=== PATIENT | male | born 1960 | race African-American/Black ===

== ENCOUNTER 2024-05-13 10:00 | Outpatient (REF) | payer MEDICARE, MEDICAID, SELFPAY ==
[2024-05-13 10:42] LABS: MANUAL DIFF FLAG NO
[2024-05-13 10:46] LABS: Basophils Percent Auto 0.4 % (0-2); Eosinophils Absolute Auto 0.1 X10*3/uL (0.0-0.4); Eosinophils Percent Auto 1.1 % (0-4); Hematocrit 46.4 % (42.0-52.0); Hemoglobin 15.2 g/dl (14.0-18.0); Imm Gran Abs Auto 0.02 X10*3/uL (0.00-0.03); Imm Gran Pct Auto 0.3 % (0.0-0.4); Lymphocytes Absolute Auto 2.1 X10*3/uL (1.2-4.9); Lymphocytes Percent Auto 28.8 % (20-40); Mean Corpuscular HGB Conc 32.8 g/dl (31.0-36.0); Mean Corpuscular Hemoglobin 28.1 pg (27.0-33.0); Mean Corpuscular Volume 85.8 fL (80.0-98.0); Mean Platelet Volume 10.7 fL (9.4-12.4); Monocytes Absolute Auto 0.6 X10*3/uL (0.1-1.2); Monocytes Percent Auto 8.8 % (2-11); Neutrophils Absolute Auto 4.4 x10*3/uL (2.0-8.3); Neutrophils Percent Auto 60.6 % (45-73); Platelet Count 250 X10*3/uL (160-400); Red Blood Count 5.41 X10*6/uL (4.60-5.80); Red Cell Distribution Width 13.8 % (11.0-16.0); White Blood Count 7.3 X10*3/uL (4.8-10.8)
[2024-05-13 10:56] LABS: Estimated Average Glucose 329 mg/dL; Hemoglobin A1C 449.5707 umol/L; Hemoglobin A1c % 13.1 % (<6.0); Total Hemoglobin (HGBA1C) 3773.1097 umol/L
[2024-05-13 11:17] LABS: Alanine Aminotransferase 14 U/L (0-40); Alkaline Phosphatase 91 U/L (39-117); Anion Gap 10 (12-20); Aspartate Amino Transferase 16 U/L (5-37); Bilirubin Total 0.3 mg/dL (0.0-1.0); Blood Urea Nitrogen 14 mg/dL (9-16); Calcium 9.7 mg/dL (8.4-10.2); Carbon Dioxide 33 mmol/L (22-29); Chloride 101 mmol/L (96-108); Cholesterol 145 mg/dL (<200); Estimated Glomerular Filt Rate > 60; Glucose Random 265 mg/dL (60-115); HDL Cholesterol 46 mg/dL (>40); LDL Cholesterol Calculated 71 mg/dL (<100); Potassium 4.4 mmol/L (3.3-5.1); Sodium 140 mmol/L (135-145); Total Protein 7.8 g/dL (6.5-8.0); Triglycerides 141 mg/dL (<150)
[2024-05-13 11:21] LABS: Thyroid Stimulating Hormone 1.44 uIU/mL (0.32-4.0)
[2024-05-13 11:22] LABS: Creatinine Urine 97.28 mg/dL; Microalbum/Creatinine Ratio Ur 142.8 ug/mg cr (<30)
[2024-05-13 11:25] LABS: Prostate Specific Antigen Scr 0.64 ng/mL (<0.05-4.0)
--- OUTSIDE RECORDS SUMMARY | 2024-05-13 11:29 | XMS_ITS ---
Author Organization [facility] [place] Address [address] [place] [address] Care Team Providers Care Pals Specialist Name Role Phone Trishamariah Josselyn Primary Care Provider Unavailab Prema Langley Unavailable [phone] REASON FOR VISIT Updating Health Insurance Encounters Encounter Location Date Provider Diagnosis [address] [address] 05/07/2024 Prema Duong Plan Of Treatment Next Appt Details Provider Name:Prema hoyos, 08/08/2024 09:30:00 AM, [address] [place] [address], [phone], Progress Notes * Troy DOMINGUEZDOB: (64 yo M)Acc No.[id number]:05/07/2024 Patient:?Troy DOMINGUEZ :1960???Age:64 Y???Sex:Male Address:[address] [place] [address] Denis [place], [address] * true * Date:? Generated for Printi ng/Fabayg/eTransmitting on:?05/13/2024 11:28 AM EST
--- OUTSIDE RECORDS SUMMARY | 2024-05-13 11:29 | XMS_ITS ---
Author Organization [facility] [place] Address [address] [place] [address] Care Team Providers Care Synthetic Resin Operator Name Role Phone Josselyn Peres Primary Care Provider Unavailab Prema Langley [phone] Farris Encounters Encounter Location Date Provider Diagnosis [address] [address] 12/22/2022 Prema Duong Plan Of Treatment Next Appt Details Provider Name:Prema hoyos, 08/08/2024 09:30:00 AM, [address] [place] [address], [phone], Progress Notes * Troy DOMINGUEZ MDOB: [birth year] (64 yo M)Acc No.[id number]:12/22/2022 Progress Note Patient:?Troy DOMINGUEZ Provider:?Prema Duong DPM :1960???Age:62 Y???Sex:Male Mp e:12/22/2022 Address:[address] [place], [place] [id number] Pcp:Josselyn Peres Subjective: * Chief Complaints: * ???1. Dr Farris. * Medical History:? Objective: * Vitals:? Assessment: Plan: * Treatment: * Images: * The named appointment provid er may or may not be the originator of this progress note, and it is not deemed complete until electronically signed by the appointment provider. Sign off status: Pending * Provider:?Prema Duong DPM Date:? Generated for Orin olguin/Maxine/Delores on:?05/13/2024 11:28 AM EST
--- OUTSIDE RECORDS SUMMARY | 2024-05-13 11:29 | XMS_ITS | Patient Health Record ---
Author Organization [facility] Address [address] [place] [address] Care Team Providers Care Ring Conductor Name Role Phone Josselyn Peres Primary Care Provider Unavailab Prema Langley Unavailable [phone] Allergies No Known Allergies Results Component Value Reference Range Notes HEMOGLOBIN A1C (GLYCOHEMOGLO BIN) Reviewed date:05/09/2024 12:51:39 PM Interpretation: Performing Lab: Notes/Report: HEMOGLOBIN A1C % (HH) 9.2 Reason For Referral No Information Medications Medication SIG (Take, Route, Frequency, Duration) Notes Start Date End Date Status Ammonium Lactate 12 % 1 application Exte rnally to affected areas of dry skin to feet except for between the toes Twice a day for 30 days Active Extra Depth Orthopedic Shoes (1 Pair) with Customized Heat Molded Multidensity Innersoles (3 Pair) as directed Dx: NIDDM/Polyneuropathy (E11.42), Hammertoe Foot Deformity (M20.41,M20.42), Preulcerative Skin Lesion(s) (L85.1 05/09/2024 Active Carvedilol 12.5 MG 1 tablet with food Orally Twice a day for 30 day(s) Active Lantus Active metFORMIN HCl 1000 MG 1 tablet with a me al Orally Once a day for 30 day(s) Active NovoLOG Not-Taking Lcnttdnghb-atXISYZksa-KY TZ 40-10-25 MG 1 tablet Orally Once a day for 30 day(s) Active Pravastatin Sodium 10 MG 1 tablet Orally Once a day for 30 day(s) Active Xarelto 20 MG 1 tablet with food Orally Once a day for 30 day(s) Active Extra Depth Orthopedic Shoes (1 Pair) with Customized Heat Molded Multidensity Innersoles (3 Pair) as directed Dx: NIDDM/Polyneuropathy (E11.42), Hammertoe Foot Deformity (M20.41,M20.42), Preulcerative Skin Lesion(s) (L85.1 07/18/2022 Active Cephalexin 500 MG 1 capsule Orally treva ry 12 hrs for 7 days Not-Taking Cephalexin 500 MG 1 tablet Orally Twic e a day for 10 day(s) Not-Taking Lyumjev Active Immunizations Vaccine Route Administration Date Status Comme nts COVID-19 Pfizer BioNTech Vaccine Unknown 05/31/2020 Administered Second Dose: 06/14/2020 Influenza Unknown 01/08/2020 Administered Influenza Unknown 12/29/2021 Administered Social History Tobacco Use: Social History Observation Description Date Details (start date - stop date) Never Smoker NA - NA Tobacco Use/Smoking Question Answer Notes Are you a: nonsmoker Additional Findings: Tobacco Non-User Current no n-smoker Alcohol Screen Question Answer Notes Did you have a drink containing alcohol in the p ast year? No Points 0 Interpretation Negative Tobacco use other than smoking: Question Answer Notes Are you an other tobacco user? No Problems Problem Type SNOMED Code ICD Code Onset Dates Problem Status W/U Status Risk Notes Problem Acquired hammer toe of right foot (3333714978610118 ) Other hammer toe(s) (acquired), right foot (M20.41) Active confirmed Problem Type 2 diabetes mellitus with peripheral angiopathy (762198243) Type 2 diabetes mellitus with diabetic peripheral angiopathy without gangrene (E11.51) Active confirmed Problem Acquired hammer toe of left foot (9312057642448381 ) Other hammer toe(s) (acquired), left foot (M20.42) Active confirmed Problem Polyneuropathy due to type 2 diabetes mellitus (034367453) Type 2 diabetes mellitus with diabetic polyneuropathy (E11.42) Active confirmed Problem Type 2 diabetes mellitus with peripheral angiopathy (588577104) Type 2 diabetes mellitus with diabetic peripheral angiopathy without gangrene (E11.51) Active confirmed Problem Peripheral circulatory disorder associated with type 1 diabetes mellitus (486016849) Type 1 diabetes mellitus with diabetic peripheral angiopathy without gangrene (E10.51) Active confirmed Problem 10266246 Type 2 diabetes mellitus with polyneuropathy (E11.42) Active confirmed Problem Atherosclerosis of [place] artery of both lower extremities, with unspecified presence of clinical manifestation (I70.203) Active confirmed Problem Atherosclerosis of artery of both lower extremities (I70.203) Active confirmed Vital Signs Blood pressure diastolic 65 mm Hg 05/09/2024 Height 9vp18fb in 05/09/2024 Blood pressure systolic 140 mm Hg 05/09/2024 Weight 360 lbs 05/09/2024 BMI 51.65 kg/m2 05/09/2024 Encounters Encounter [facility] [address] 05/09/2024 Prema Duong Type 2 diabetes mellitus with diabetic polyneuropathy E11.42 ; Other hammer toe(s) (acquired), right foot M20.41 ; Other hammer toe(s) (acquired), left foot M20.42 and Xerosis of skin L85.[address] [facility] [address] 05/07/2024 Prema Duong Assessments Encounter Date Diagnosis (ICD Code) Assessment Notes Treatment Notes Treatment Clinical Notes Section Notes 05/09/2024 Other hammer toe(s) (acquired), right foot (ICD-10 - M20.41) Patient Educated with: DIABETIC FOOT CARE INSTRUCTIONS. pdf (DIABETIC FOOT CARE INSTRUCTIONS. pdf) 05/09/2024 Type 2 diabetes mellitus with diabetic polyneuropathy (ICD-10 - E11.42) 05/09/2024 Other hammer toe(s) (acquired), left foot (ICD-10 - M20.42) 05/09/2024 Xerosis of skin (ICD-10 - L85.3) Plan Of Treatment Pending Test Test Name Order Date 26859 I&D ABSCESS- SIMPLE,SINGLE 020 Next Appt Details Provider Name:Prema hoyos, 08/08/2024 09:30:00 AM, [address] [place] [address], [phone], Insurance Providers Payer Name Payer Address Payer Phone Subscriber Number Group Number Insured Name Patient Relationship to Insured Coverage Start Date Coverage End Date [employer] Medicare [id number] [address] [address] [place] [address] [id number] Troy Orosco Self - patient is the insured Medical (General) History Medical History History ICD Code type II diabetes Gall bladder problems High blood pressure Poor circulation Measles Mumps Chicken pox CAD Hypercoagability Surgical History Surgery Date(Month/Year) gall bladder removed 2004 bowel surgery 2009 appendectomy - rupture 1994
== END 2024-05-13 10:01 | disposition home or self-care (01) ==
LOC: HO.10HDL 10:00
PROVIDERS: Visit Provider Internal Medicine
DX: D68.69 Other thrombophilia (principal); E11.65 Type 2 diabetes mellitus with hyperglycemia; E78.00 Pure hypercholesterolemia, unspecified; G47.33 Obstructive sleep apnea (adult) (pediatric); I10 Essential (primary) hypertension; Z12.5 Encounter for screening for malignant neoplasm of prostate
CPT/HCPCS: 36415; 80053; 80061; 82043; 82570; 83036; 84153; 84443; 85025

== ENCOUNTER 2024-07-16 09:45 | Outpatient (REF) | payer MEDICARE, MEDICAID, SELFPAY ==
[2024-07-16 10:38] LABS: Estimated Average Glucose 298 mg/dL
[2024-07-16 11:02] LABS: Alanine Aminotransferase 19 U/L (0-40); Albumin Level 3.9 g/dL (3.5-5.0); Alkaline Phosphatase 85 U/L (39-117); Anion Gap 9 (12-20); Aspartate Amino Transferase 17 U/L (5-37); Bilirubin Total 0.3 mg/dL (0.0-1.0); Blood Urea Nitrogen 14 mg/dL (9-16); Calcium 9.3 mg/dL (8.4-10.2); Carbon Dioxide 29 mmol/L (22-29); Chloride 106 mmol/L (96-108); Estimated Glomerular Filt Rate > 60; Glucose Random 160 mg/dL (60-115); Potassium 4.1 mmol/L (3.3-5.1); Sodium 140 mmol/L (135-145); Total Protein 8.1 g/dL (6.5-8.0)
== END 2024-07-16 09:46 | disposition home or self-care (01) ==
LOC: HO.10HDL 09:45
PROVIDERS: Visit Provider Internal Medicine
DX: D68.69 Other thrombophilia (principal); E11.65 Type 2 diabetes mellitus with hyperglycemia; G47.33 Obstructive sleep apnea (adult) (pediatric); I10 Essential (primary) hypertension
CPT/HCPCS: 36415; 80053; 83036

== ENCOUNTER 2024-10-23 09:51 | Outpatient (REF) | payer MEDICARE, MEDICAID, SELFPAY ==
--- OUTSIDE RECORDS SUMMARY | 2024-10-23 11:14 | XMS_ITS | Clinical Summary ---
Author Organization [facility] ity Address [address] [place] [address] Care Team Providers Care Deicer Kit Assembler Name Role Phone Unavailable Primary Care Provider Unavailabl e Social History Tobacco Use Types Packs/Day Years Used Date Smoking Tobacco: Never Assessed Sex and Gender Information Value Date Recorded Sex Assigned at Not on file Legal Sex Male 9:40 AM EST Gender Identity Not on file Sexual Orientation Not on file Plan of Treatment Health Maintenance Due Date Last Done Comments DTaP,Tdap,and Td Vaccines (1 - Tdap) 1977 Pneumococcal Vaccine: 50+ Ye ars (1 of 1 - PCV) 02/20/2008 Zoster Vaccines (1 of 2) 02/20/2008 COVID-19 Vaccine ( - 2023-2 5 season) 2023 Influenza Vaccine (Season Ended) 2024 RSV Immunization Adult Patie nts (1 - 1-dose 75+ series) 2033 HIB Vaccines Aged Out No longer eligi ble based on patient's age to complete this topic HPV Vaccines Aged Out No longer eligi ble based on patient's age to complete this topic Hepatitis A Vaccines Aged Out No long er eligible based on patient's age to complete this topic Hepatitis B Vaccines Aged Out No long er eligible based on patient's age to complete this topic IPV Vaccines Aged Out No longer eligi ble based on patient's age to complete this topic MMR Vaccines Aged Out No longer eligi ble based on patient's age to complete this topic Meningococcal ACWY Vaccine Aged Out N o longer eligible based on patient's age to complete this topic Meningococcal B Vaccine Aged Out No l onger eligible based on patient's age to complete this topic RSV Immunization Patients Un juan miguel 20 months Aged Out No longer eligible b ased on patient's age to complete this topic Varicella Vaccines Aged Out No longer eligible based on patient's age to complete this topic
[2024-10-23 13:41] LABS: Estimated Average Glucose 283 mg/dL; Hemoglobin A1c % 11.5 % (<6.0)
[2024-10-23 13:51] LABS: Alanine Aminotransferase 10 U/L (0-40); Albumin Level 3.9 g/dL (3.5-5.0); Alkaline Phosphatase 70 U/L (39-117); Anion Gap 10 (12-20); Aspartate Amino Transferase 18 U/L (5-37); Bilirubin Total 0.3 mg/dL (0.0-1.0); Blood Urea Nitrogen 10 mg/dL (9-16); Calcium 8.7 mg/dL (8.4-10.2); Carbon Dioxide 28 mmol/L (22-29); Chloride 107 mmol/L (96-108); Estimated Glomerular Filt Rate > 60; Glucose Random 106 mg/dL (60-115); Potassium 3.6 mmol/L (3.3-5.1); Sodium 141 mmol/L (135-145); Total Protein 7.3 g/dL (6.5-8.0)
== END 2024-10-23 09:52 | disposition home or self-care (01) ==
LOC: HO.10HDL 09:51
PROVIDERS: Visit Provider Internal Medicine
DX: E11.65 Type 2 diabetes mellitus with hyperglycemia (principal); G47.33 Obstructive sleep apnea (adult) (pediatric); I10 Essential (primary) hypertension; M17.9 Osteoarthritis of knee, unspecified; R09.02 Hypoxemia
CPT/HCPCS: 36415; 80053; 83036

== ENCOUNTER 2025-01-05 11:17 | Outpatient (REF) | payer MEDICARE, MEDICAID, SELFPAY ==
--- OUTSIDE RECORDS SUMMARY | 2024-08-08 05:30 | XMS_ITS ---
Author Organization [facility] miguel [place] Address [address] [place] [address] Care Team Providers Care Continuous Wave Operator Name Role Phone Josselyn Peres Primary Care Provider Unavailab Prema Langley Unavailable [phone] Farris Encounters Encounter Location Date Provider Diagnosis [address] [address] 08/08/2024 Prema Duong Plan Of Treatment Next Appt Details Provider Name:Prema hoyos, 03/04/2025 10:00:00 AM, [address] [place] [address], [phone], Progress Notes * Troy DOMINGUEZ MDOB: [birth year] (64 yo M)Acc No.[id number]:08/08/2024 Progress Note Patient: Giovani Troy VELOZ Provider: Leo Duong DPM :1960 A ge:64 Y S ex:Male Date:08/08/2024 Address:[address] [place] [address] [facility] [id number] Pcp:Josselyn Peres Subjective: * Chief Complaints: * [address] Farris. * Medical History: Objective: * Vitals: Assessment: Plan: * Treatment: * Images: * The named appointment provid er may or may not be the originator of this progress note, and it is not deemed complete until electronically signed by the appointment provider. Sign off status: Pending * Provider: Leo Duong DPM Date: 0 08/08/2024 Generated for Orin olguin/Maxine/Delores on: 0 01/05/2025 01:59 PM EDT
[2025-01-05 13:05] LABS: Hemoglobin A1C 327.1639 umol/L; Total Hemoglobin (HGBA1C) 3650.5896 umol/L
[2025-01-05 13:38] LABS: Alanine Aminotransferase 12 U/L (0-40); Albumin Level 4.1 g/dL (3.5-5.0); Alkaline Phosphatase 65 U/L (39-117); Anion Gap 13 (12-20); Aspartate Amino Transferase 20 U/L (5-37); Blood Urea Nitrogen 12 mg/dL (9-16); Calcium 9.2 mg/dL (8.4-10.2); Carbon Dioxide 27 mmol/L (22-29); Chloride 107 mmol/L (96-108); Estimated Glomerular Filt Rate > 60; Potassium 4.2 mmol/L (3.3-5.1); Sodium 143 mmol/L (135-145); Total Protein 7.5 g/dL (6.5-8.0)
--- OUTSIDE RECORDS SUMMARY | 2025-01-05 13:59 | XMS_ITS | Patient Health Record ---
Author Organization [facility] Address [address] [place] [address] Care Team Providers Care Manufacturing Group Leader Name Role Phone Josselyn Peres Primary Care Provider Unavailab Prema Langley Unavailable [phone] Black, Wendie Unavailable [phone] Allergies No Known Allergies Results Component Value Reference Range Notes HEMOGLOBIN A1C (GLYCOHEMOGLO BIN) Reviewed date:05/09/2024 12:51:39 PM Interpretation: Performing Lab: Notes/Report: HEMOGLOBIN A1C % (HH) 9.2 HEMOGLOBIN A1C (GLYCOHEMOGLO BIN) Reviewed date:06/30/2024 11:15:35 AM Interpretation: Performing Lab: Notes/Report: HEMOGLOBIN A1C % (HH) 10.0 Reason For Referral No Information Medications Medication SIG (Take, Route, Frequency, Duration) Notes Start Date End Date Status Xarelto 20 MG 1 tablet with food Orally Once a day; Duration: 30 day(s) Active Pravastatin Sodium 10 MG 1 tablet Orally Once a day; Duration: 30 day(s) Active Ammonium Lactate 12 % 1 application Exte rnally to affected areas of dry skin to feet except for between the toes Twice a day; Duration: 30 days Active Extra Depth Orthopedic Shoes (1 Pair) with Customized Heat Molded Multidensity Innersoles (3 Pair) as directed Dx: NIDDM/Polyneuropathy (E11.42), Hammertoe Foot Deformity (M20.41,M20.42), Preulcerative Skin Lesion(s) (L85.1 07/18/2022 Active Albuterol Active NovoLOG Not-Taking Ketoconazole 2 % 1 application Apply a thin layer to externally to feet, even between toes Twice a day; Duration: 30 days Active Cephalexin 500 MG 1 capsule Orally twi ce a day; Duration: 10 days Active Extra Depth Orthopedic Shoes (1 Pair) with Customized Heat Molded Multidensity Innersoles (3 Pair) as directed Dx: NIDDM/Polyneuropathy (E11.42), Hammertoe Foot Deformity (M20.41,M20.42), Preulcerative Skin Lesion(s) (L85.1 05/09/2024 Active Carvedilol 12.5 MG 1 tablet with food Orally Twice a day; Duration: 30 day(s) Active Cephalexin 500 MG 1 tablet Orally Twic e a day; Duration: 10 day(s) Not-Og ing Lyumjev Active Cephalexin 500 MG 1 capsule Orally treva ry 12 hrs; Duration: 7 days Not-Og ing metFORMIN HCl 1000 MG 1 tablet with a me al Orally Once a day; Duration: 30 day(s) Active Lantus Active Ghbtmbgeok-pdEMGZJosv-QI TZ 40-10-25 MG 1 tablet Orally Once a day; Duration: 30 day(s) Active Immunizations Vaccine Route Administration Date Status Comme nts Influenza Unknown 01/08/2020 Administered Influenza Unknown 12/29/2021 Administered Influenza Unknown 12/30/2023 Administered COVID-19 Pfizer BioNTech Vaccine Unknown 05/31/2020 Administered Second Dose: 06/14/2020 Social History Tobacco Use: Social History Observation Description Date Details (start date - stop date) Never Smoker NA - NA Tobacco use other than smoking: Question Answer Notes Are you an other tobacco user? No Tobacco Control (Standard) Question Answer Notes Tobacco use: Nonsmoker Additional Findings: Tobacco non-user Current no nsmoker AUDIT-C (Standard) Question Answer Notes Did you have a drink containing alcohol in the p ast year? No Points 0 Interpretation Negative Problems Problem Type SNOMED Code ICD Code Onset Dates Problem Status W/U Status Risk Notes Problem Polyneuropathy due to diabetes mellitus (98410402) Type 2 diabetes mellitus with polyneuropathy (E11.42) Active confirmed Problem Bilateral atherosclerosis of arteries of lower limbs (disorder) (39186060220771383 ) Atherosclerosis of [place] artery of both lower extremities, with unspecified presence of clinical manifestation (I70.203) Active confirmed Vital Signs Blood pressure diastolic 70 mm Hg 11/25/2024 Height 4bg27yv in 11/25/2024 Blood pressure systolic 130 mm Hg 11/25/2024 Weight 361 lbs 11/25/2024 BMI 51.79 kg/m2 11/25/2024 Procedures Procedure Date Ordered Date Performed Result Body Sit e 92772-Oetbkrnp Plate 06/30/2024 N/A Encounters Encounter Location Date Provider Diagnosis [address] [address] 05/09/2024 Prema Duong Type 2 diabetes mellitus with diabetic polyneuropathy E11.42 ; Other hammer toe(s) (acquired), right foot M20.41 ; Other hammer toe(s) (acquired), left foot M20.42 and Xerosis of skin L85.[address] [address] 06/30/2024 Wendie Black Ingrown nail L60.0 a nd Cellulitis of toe of left foot L03.[address] [address] 08/26/2024 Prema Duong Type 2 diabetes mellitus with polyneuropathy E11.42 and Atherosclerosis of artery of both lower extremities I70.[address] [address] 11/25/2024 Prema Duong Type 2 diabetes mellitus with polyneuropathy E11.42 ; Tinea pedis of both feet B35.3 and Atherosclerosis of artery of both lower extremities I70.[address] [address] 05/07/2024 Prema Duong [address] [address] 06/30/2024 Prema Duong Assessments Encounter Date Diagnosis (ICD Code) Assessment Notes Treatment Notes Treatment Clinical Notes Section Notes 05/09/2024 Other hammer toe(s) (acquired), right foot (ICD-10 - M20.41) Patient Educated with: DIABETIC FOOT CARE INSTRUCTIONS. pdf (DIABETIC FOOT CARE INSTRUCTIONS. pdf) 06/30/2024 Ingrown nail (ICD-10 - L60.0) 06/30/2024 Cellulitis of toe of left foot (ICD-10 - L03.032) 08/26/2024 Type 2 diabetes mellitus with polyneuropathy (ICD-10 - E11.42) 08/26/2024 Atherosclerosis of artery of both lower extremities (ICD-10 - I70.203) 11/25/2024 Type 2 diabetes mellitus with polyneuropathy (ICD-10 - E11.42) 05/09/2024 Type 2 diabetes mellitus with diabetic polyneuropathy (ICD-10 - E11.42) 11/25/2024 Tinea pedis of both feet (ICD-10 - B35.3) Patient Educated with: ATHELETE .pdf (ATHELETE .pdf) 11/25/2024 Atherosclerosis of artery of both lower extremities (ICD-10 - I70.203) 05/09/2024 Other hammer toe(s) (acquired), left foot (ICD-10 - M20.42) 05/09/2024 Xerosis of skin (ICD-10 - L85.3) Plan Of Treatment Pending Test Test Name Order Date 55651-Entvlmje Plate 06/30/2024 69078 I&D ABSCESS- SIMPLE,SINGLE 020 Next Appt Details Provider Name:Prema hoyos, 03/04/2025 10:00:00 AM, [address] [place] [address], [phone], Insurance Providers Payer Name Payer Address Payer Phone Subscriber Number Group Number Insured Name Patient Relationship to Insured Coverage Start Date Coverage End Date [employer] Medicare [id number] [address] [address] [place] [address] [phone] [id number] Troy Orosco Self - patient is the insured Medical (General) History Medical History History ICD Code type II diabetes Gall bladder problems High blood pressure Poor circulation Measles Mumps Chicken pox CAD Hypercoagability Surgical History Surgery Date(Month/Year) gall bladder removed 2004 bowel surgery 2009 appendectomy - rupture 1994
--- OUTSIDE RECORDS SUMMARY | 2025-01-05 13:59 | XMS_ITS | Clinical Summary ---
Author Organization [facility] ity Address [address] [place] [address] Care Team Providers Care Pipe Fittings Molder Name Role Phone Unavailable Primary Care Provider [...] Vaccines (1 of 2) 02/20/2008 COVID-19 Vaccine (1 - 2023-2 5 season) 2023 Depression Screening 04/30/2024 Influenza Vaccine (#1) 2024 RSV Immunization Adult Patie nts (1 [...]
== END 2025-01-05 11:18 | disposition home or self-care (01) ==
LOC: HO.10HDL 11:17
PROVIDERS: Visit Provider Internal Medicine
DX: E11.65 Type 2 diabetes mellitus with hyperglycemia (principal); G47.33 Obstructive sleep apnea (adult) (pediatric); S89.8 Other specified injuries of lower leg
CPT/HCPCS: 36415; 80053; 83036